=== PATIENT | male | born 1990 | race Two or more races ===

== ENCOUNTER 2019-08-16 13:56 | Emergency (ER) | payer OTHER ==
[2019-08-16 14:16] VITALS: BMI 38.7
--- NOTE | 2019-08-16 14:16 | PDOC ---
Rapid Medical Evaluation Chief Complaint: Chest Pain Time Seen by Provider: 08/16/19 14:13 Medical Evaluation: Allergies Allergy/AdvReac Type Severity Reaction Status Date / Time amoxicillin Allergy Verified 08/16/19 14:09 08/16/19 14:14 CC: anxious, chest tightness to left arm, no sob, no smoking Exam: ekg nsr, appears calm Plan: labs, Discharge Disposition - Diagnosis Chest tightness - Referrals - Patient Instructions - Post Discharge Activity
[2019-08-16 15:29] LABS: BASO % 0.5 % (0-2.0); EOS % 0.5 % (0-4.5); HEMATOCRIT 42.5 % (35.4-49); HEMOGLOBIN 14.4 GM/dL (11.7-16.9); LYMPH % 15.3 % (8-40); MCH 29.4 pg (25.7-33.7); MCHC 33.9 g/dl (32.0-35.9); MEAN CELL VOLUME 86.8 fl (80-96); NEUT % 75.7 % (42.8-82.8); PLATELET COUNT 236 K/MM3 (134-434); RBC 4.89 M/mm3 (4.00-5.60); RDW 13.4 % (11.9-15.9); WHITE BLOOD COUNT 10.9 K/mm3 (4.0-10.0)
[2019-08-16 16:06] LABS: ALBUMIN 3.9 g/dl (3.4-5.0); ALK PHOS 56 U/L (45-117); ANION GAP 8 MMOL/L (8-16); BILIRUBIN,TOTAL 0.5 mg/dL (0.2-1); BLOOD UREA NITROGEN 13.8 mg/dL (7-18); CALCIUM 9.4 mg/dL (8.5-10.1); CHLORIDE 109 mmol/L (98-107); CO2 24 mmol/L (21-32); GLUCOSE,RANDOM 90 mg/dL (74-106); SGOT/AST 11 U/L (15-37); SGPT/ALT 22 U/L (13-61); SODIUM 142 mmol/L (136-145); TOT PROT 7.3 g/dl (6.4-8.2)
--- NOTE | 2019-08-16 16:33 | PDOC ---
History of Present Illness - General Chief Complaint: Chest Pain Stated Complaint: CHEST PAIN Time Seen by Provider: 08/16/19 14:13 - History of Present Illness Initial Comments: 08/16/19 16:29 29-year-old male with a past medical history of anxiety presents for evaluation of 3 days of chest and left arm pain. Seen at another hospital cardiac work-up was negative he continues to have the same pain Past History - Medical History Allergies/Adverse Reactions: Allergies Allergy/AdvReac Type Severity Reaction Status Date / Time amoxicillin Allergy Verified 08/16/19 14:09 Home Medications: Ambulatory Orders Cyclobenzaprine HCl [Flexeril 10 mg] 10 mg PO HS PRN #10 tablet 08/16/19 COPD: No Other medical history: ANXIETY - Immunization History Immunization Up to Date: Yes - Psycho-Social/Smoking History Smoking History: Never smoked - Substance Abuse Hx (Audit-C & DAST Scrn) How often the patient has a drink containing alcohol: Never Score: In Men: 4 or > Positive; In Women: 3 or > Positive: 0 Screen Result (Pos requires Nsg. Audit-10AR): Negative In the last yr the pt used illegal drug/Rx for NonMed reason: No Score: Yes response is considered Positive: 0 Screen Result (Positive result requires Nsg. DAST-10): Negative Review of Systems - Review of Systems Constitutional: No: Chills, Diaphoresis, Fever, Night Sweats Respiratory: No: Cough, Shortness of Breath Cardiac (ROS): Yes: Chest Pain Musculoskeletal: Yes: See HPI *Physical Exam - Vital Signs Last Vital Signs Temp Pulse Resp BP Pulse Ox 98.7 F 96 H 20 113/87 98 08/16/19 14:13 08/16/19 14:13 08/16/19 14:13 08/16/19 14:13 08/16/19 14:13 - Physical Exam 08/16/19 16:30 GENERAL: The patient is awake, alert, and fully oriented, in no acute distress. HEAD: Normal with no signs of trauma. EYES: sclera anicteric, conjunctiva clear. ENT: Ears normal tympanic membranes normal oropharynx clear uvula midline NECK: Normal range of motionMild paracervical musculature spasm LUNGS: Breath sounds equal, clear to auscultation bilaterally. No wheezes, and no crackles. HEART: S1 and S2 without murmur, rub or gallop. ABDOMEN: Soft, nontender, normoactive bowel sounds. No guarding, no rebound. No masses. EXTREMITIES: Normal range of motion, no edema. No clubbing or cyanosis. No cords, erythema, or tenderness. NEUROLOGICAL: Cranial nerves II through XII grossly intact. PSYCH: Normal mood, normal affect. SKIN: Warm, Dry, normal turgor, no rashes or lesions noted. ED Treatment Course - LABORATORY CBC & Chemistry Diagram: 08/16/19 15:12 08/16/19 14:16 - ADDITIONAL ORDERS Additional order review: Laboratory Results 08/16/19 14:16 Sodium 142 Potassium 4.0 Chloride 109 H Carbon Dioxide 24 Anion Gap 8 BUN 13.8 Creatinine 1.0 Est GFR (CKD-EPI)AfAm 118.19 Est GFR (CKD-EPI)NonAf 101.97 Random Glucose 90 Calcium 9.4 Magnesium 2.0 Total Bilirubin 0.5 AST 11 L ALT 22 Alkaline Phosphatase 56 Creatine Kinase 106 Troponin I < 0.02 Total Protein 7.3 Albumin 3.9 08/16/19 15:12 RBC 4.89 MCV 86.8 MCHC 33.9 RDW 13.4 MPV 9.0 Neutrophils % 75.7 Lymphocytes % 15.3 Monocytes % 8.0 Eosinophils % 0.5 Basophils % 0.5 Medical Decision Making - Medical Decision Making 08/16/19 16:31 Cardiac work-up is normal mild cervical musculature spasm. Will treat with Flexeril follow-up with cardiology as well as orthopedic surgery EKG and chest x-ray are normal. Case reviewed with attending I have reviewed the pathophysiology with the patient. They are in agreement with the treatment plan all questions were answered to their satisfaction. Understanding for follow-up without fail was also conveyed to the patient. Again they are in agreement. Discharge - Discharge Information Problems reviewed: Yes Clinical Impression/Diagnosis: Chest tightness, Muscle spasm Condition: Stable Disposition: HOME - Admission No - Additional Discharge Information Prescriptions: Cyclobenzaprine HCl [Flexeril 10 mg] 10 mg PO HS PRN #10 tablet PRN Reason: Muscle Spasms - Follow up/Referral Referrals: Rodney Leonard MD [Staff Physician] - Elias Kwan DO [Staff Physician] - - Patient Discharge Instructions Patient Printed Discharge Instructions: DI for Atypical Chest Pain, DI for Muscle Spasm Additional Instructions: Please take the muscle relaxer as directed. 1 tablet before bedtime will make you sleepy. Tylenol and Motrin as directed for pain. Return to the emergency room for worsening symptoms and without fail follow-up with both cardiology and orthopedic surgery in 1 to 2 days for further evaluation and treatment options and return to the emergency room should symptoms worsen. - Post Discharge Activity
[2019-08-16 17:24] VITALS: BP 115/68; PULSE 76; TEMP 99
--- NOTE | 2019-08-17 11:17 | EKG ---
Test Reason : Blood Pressure : / mmHG Vent. Rate : 090 BPM Atrial Rate : 090 BPM P-R Int : 154 ms QRS Dur : 086 ms QT Int : 336 ms P-R-T Axes : 039 041 025 degrees QTc Int : 411 ms NORMAL SINUS RHYTHM NORMAL ECG NO PREVIOUS ECGS AVAILABLE Confirmed by MD MAKAYLA, TIFFANY ([id number]) on 08/17/2019 11:17:34 AM Referred By: Confirmed By:TIFFANY BENAVIDES MD
== END 2019-08-16 17:24 | disposition home or self-care (01) ==
LOC: JER 13:56
DX: R07.9 Chest pain, unspecified (principal); M62.838 Other muscle spasm
CPT/HCPCS: 36415; 71045-TC-FY; 80053; 82550; 83735; 84484; 85025; 93005; 93010; 99285-25